=== PATIENT | female | born 1975 | race Caucasian/White ===

== ENCOUNTER → 2018-09-10 | Outpatient (CLI) | payer OTHER ==
--- NOTE | 2018-09-11 08:35 | RADIOLOGY IMAGING REPORT ---
FACILITY: [facility] [place] PATIENT NAME: KORINA LYON : [id number] MR: [id number] V: [id number] EXAM DATE: ORDERING PHYSICIAN: REBA FUENTES TECHNOLOGIST: Lor Vilchis PROCEDURE:BILATERAL DIGITAL SCREENING MAMMOGRAM WITH CAD ASSISTED INTERPRETATION & 3D TOMOSYNTHESIS COMPARISON:None. INDICATIONS:SCREENING FINDINGS: The breasts are heterogeneously dense which can obscure small masses. There is no demonstration of malignant appearing mass, or calcification in either breast. DIAGNOSTIC CATEGORY 1--NEGATIVE. RECOMMENDATIONS: ROUTINE MAMMOGRAM AND CLINICAL EVALUATION. IMPRESSION: BIRADS 1: Negative. No significant abnormality is seen. Dictated by: Lucy Mann M.D. on 09/10/2018 at 15:51 Transcribed by: CAROLYN on 09/10/2018 at 16:01 Approved by: Lucy Mann M.D. on 09/11/2018 at 8:34 [facility]
== END ==
LOC: MAMO 04:31
PROVIDERS: ATTEND Nurse Practitioner Psychiatric/Mental Health
DX: Z12.31 Encounter for screening mammogram for malignant neoplasm of breast (principal)
CPT/HCPCS: 77063; 77067